=== PATIENT | male | born 1950 | race Caucasian/White ===

== ENCOUNTER 2019-07-08 14:38 | Emergency (ER) | payer OTHER ==
[~2019-07-08] VITALS: Ht 170.2 cm; Wt 78.0 kg
[2019-07-08 14:51] VITALS: Ht 170.2 cm; Wt 78.0 kg
[2019-07-08 18:18] VITALS: BP 145/80
== END 2019-07-08 19:18 | disposition home or self-care (01) ==
LOC: ED 14:38
DX: I80.9 Phlebitis and thrombophlebitis of unspecified site (principal)
CPT/HCPCS: 36415; 85378; Q0092